=== PATIENT | male | born 1950 | race Two or more races ===

== ENCOUNTER 2019-07-21 07:29 | Inpatient (IN) | payer MEDICARE, OTHER ==
[2019-07-21] VITALS (11 sets, daily range): BP systolic 97–146; BP diastolic 65–100
[~2019-07-21] VITALS: Ht 167.6 cm; Wt 71.2 kg
--- NOTE | 2019-07-21 07:49 | Pre-Procedure Note/Attestation ---
Pre-Procedure Note/Attestation Complete Prior to Procedure Planned Procedure: not applicable Procedure Narrative: TURP SP Tube placement Indications for Procedure Pre-Operative Diagnosis: retention Attestation I attest that I discussed the nature of the procedure; its benefits; risks and complications; and alternatives (and the risks and benefits of such alternatives ), prior to the procedure, with the patient (or the patient's legal truck sales representative). I attest that, if there was a reasonable possibility of needing a blood transfusion, the patient (or the patient's legal truck sales representative) was given the [facility] standardized written summary, pursuant to the Alex Lita Blood Safety Act ([place] Health and Safety Code # 1645, as amended). I attest that I re-evaluated the patient just prior to the surgery and that there has been no change in the patient's H&P, except as documented below: Nima Gallo MD Jul 21, 2019 07:49
[2019-07-21] MEDS ORDERED: Glycopyrrolate 0.2mg/ml 1ml Vial ONE ×3 (08:29→09:51)
--- NOTE | 2019-07-21 08:35 | Pre-Procedure Note/Attestation ---
Pre-Procedure Note/Attestation Complete Prior to Procedure Planned Procedure: not applicable Procedure Narrative: TURP Cystolopaxy Indications for Procedure Pre-Operative Diagnosis: retention Attestation I attest that I discussed the nature of the procedure; its benefits; risks and complications; and alternatives (and the risks and benefits of such alternatives ), prior to the procedure, with the patient (or the patient's legal district representative). I attest that, if there was a reasonable possibility of needing a blood transfusion, the patient (or the patient's legal district representative) was given the [facility] standardized written summary, pursuant to the Alex Lita Blood Safety Act ([place] Health and Safety Code # 1645, as amended). I attest that I re-evaluated the patient just prior to the surgery and that there has been no change in the patient's H&P, except as documented below: Nima Gallo MD Jul 21, 2019 08:35
[2019-07-21] MEDS ORDERED: CHOLESTEROL MED SQ (08:38)
[2019-07-21] MEDS ORDERED: BENICAR HCT 401 EACH ORAL (08:38)
[2019-07-21] MEDS ORDERED: NS Irrig 4000ml IRRIG ONE ×2 (09:00)
[2019-07-21] MEDS ORDERED: Midazolam 2mg/2ml Inj ONE (09:00)
[2019-07-21] MEDS ORDERED: fentaNYL 100 mcg/2 mL IV ONE (09:00)
[2019-07-21] MEDS ORDERED: LR 1000ml ONE (09:00)
[2019-07-21] MEDS ORDERED: Neostigmine 1mg/ml 10ml Inj ONE (09:00)
[2019-07-21] MEDS ORDERED: Rocuronium Bromide 50mg/5ml Inj IV ONE (09:00)
[2019-07-21] MEDS ORDERED: Sterile Water Irrig 1000ml IRRIG ONE (09:00)
[2019-07-21] MEDS ORDERED: NS Irrig 1000ml ONE (09:00)
[2019-07-21] MEDS ORDERED: LR 1000ml 1,000 ML IVLG SCH (09:07)
[2019-07-21] MEDS ORDERED: Lidocaine 1% MPF 10mg/ml 5ml ONE (09:09)
[2019-07-21] MEDS ORDERED: Propofol 200mg/20ml IV ONE (09:09)
[2019-07-21] MEDS ORDERED: Dexamethasone 4mg/ml vial ONE (09:09)
--- NOTE | 2019-07-21 09:09 | Anethesia Preoperative Eval ---
Anesthesia Pre-op PMH/ROS General Date of Evaluation: Jul 21, 2019 Time of Evaluation: 09:03 Anesthesiologist: Faustino ASA Score: ASA 3 Mallampati Score Class I : Soft palate, uvula, fauces, pillars visible Class II: Soft palate, uvula, fauces visible Class III: Soft palate, base of uvula visible Class IV: Only hard plate visible Mallampati Classification: Class II Surgeon: Sabino Diagnosis: BPH Surgical Procedure: Prostatectomy Anesthesia History: none Family History: no anesthesia problems Allergies: Coded Allergies: No Known Allergies (Unverified , 07/21/19) Medications: see eMAR Patient NPO?: Yes NPO Date: Jul 20, 2019 NPO Time: 1999 Past Medical History Cardiovascular: Reports: HTN, other - HL Gastrointestinal/Genitourinary: Reports: other - BPH, Bladder Stones Anesthesia Pre-op Phys. Exam Physician Exam Last Vital Signs Date Time Temp Pulse Resp B/P (MAP) Pulse Ox O2 Delivery O2 Flow Rate FiO2 07/21/19 08:22 Room Air 07/21/19 07:56 97.0 64 18 124/76 (92) 98 Constitutional: NAD Neurologic: CN 2-12 intact Cardiovascular: RRR Respiratory: CTA Gastrointestinal: S/NT/ND Airway Exam Mallampati Score: Class II MO: full ROM: limited Teeth: missing, intact Anesthesia Pre-op A/P Risk Assessment & Plan Assessment: ASA 3 Plan: GA, SED, GlideScope Go Status Change Before Surgery: No Pre-Antibiotics Dru Gram Ancef IV Given Within 1 Hr of Incision: Yes Time Given: 09:16 Chad Harmon MD Jul 21, 2019 09:09
[2019-07-21] MEDS ORDERED: Atropine Sulfate 0.4mg/ml inj IVP PRN (09:15)
[2019-07-21] MEDS ORDERED: Acetaminophen (Non formulary) 100 ML IV ONE (09:15)
[2019-07-21] MEDS ORDERED: LORazepam Inj 2mg/ml 1ml IV PRN (09:15)
[2019-07-21] MEDS ORDERED: Ketorolac 30mg Inj IV PRN ×2 (09:15)
[2019-07-21] MEDS ORDERED: HYDROcodone/Acetamin 5/325 tab ORAL PRN ×2 (09:15→10:30)
[2019-07-21] MEDS ORDERED: Metoclopramide 10mg/2ml Inj IVP PRN (09:15)
[2019-07-21] MEDS ORDERED: Hydromorphone 0.5mg/0.5ml inj IVP PRN (09:15)
[2019-07-21] MEDS ORDERED: DiphenhydrAMINE 50mg/ml Inj IVP PRN (09:15)
[2019-07-21] MEDS ORDERED: Labetalol 5mg/ml 20ml vial IV PRN (09:15)
[2019-07-21] MEDS ORDERED: Meperidine 25mg/0.5ml Inj (FOR RIGORS ONLY) IV PRN (09:15)
[2019-07-21] MEDS ORDERED: HYDROcodone/Acetamin 7.5/325 tab ORAL PRN (09:15)
[2019-07-21] MEDS ORDERED: fentaNYL 100 mcg/2 mL IV PRN (09:15)
[2019-07-21] MEDS ORDERED: Midazolam 2mg/2ml Inj IVP PRN (09:15)
[2019-07-21] MEDS ORDERED: oxyCODONE HCL/Acetaminophen 5/325mg ORAL PRN (09:15)
--- NOTE | 2019-07-21 09:37 | Immediate Post-Op Evaluation ---
Immediate Post-Op Evalulation Immediate Post-Op Evalulation Procedure: Prostatectomy Date of Evaluation: Jul 21, 2019 Time of Evaluation: 10:27 IV Fluids: 700 LR Blood Products: 0 Estimated Blood Loss: 50 Urinary Output: 0 Blood Pressure Systolic: 146 Blood Pressure Diastolic: 100 Pulse Rate: 91 Respiratory Rate: 16 O2 Sat by Pulse Oximetry: 100 Temperature (Fahrenheit): 97.9 Pain Score (1-10): 2 Nausea: No Vomiting: No Complications 0 Patient Status: awake, reacts, patent, extubated, none Hydration Status: adequate Dru Gram Ancef IV Given Within 1 Hr of Incision: Yes Chad Harmon MD Jul 21, 2019 09:37
--- NOTE | 2019-07-21 10:26 | Brief Operative Note ---
Immediate Post Operative Note Operative Note Pre-op Diagnosis: retention Procedure: turp cystolopaxy Post-op Diagnosis: same Post-op Diagnosis: same as pre-op Surgeon: rosa gallo Anesthesia: general Specimen: yes Complications: none Condition: stable Fluids: 500 Estimated Blood Loss: minimal Implant(s) used?: No Nima Gallo MD Jul 21, 2019 10:26
[2019-07-21] MEDS ORDERED: HYDROmorphone 1mg/ml Carpuject IVP PRN (10:30)
[2019-07-21 11:00] LABS: BASOPHILS % (AUTO) 1.2 % (0.0-2.0); EOSINOPHILS % (AUTO) 0.9 % (0.0-3.0); HEMATOCRIT 41.3 % (42.0-52.0); HEMOGLOBIN 13.8 G/DL (14.2-18.0); LYMPHOCYTES % (AUTO) 23.8 % (20.0-45.0); MEAN CORPUSCULAR VOLUME 96 FL (80-99); MONOCYTES % (AUTO) 5.2 % (1.0-10.0); NEUTROPHILS % (AUTO) 68.8 % (45.0-75.0); PLATELET COUNT 299 K/UL (150-450); RED BLOOD COUNT 4.29 M/UL (4.70-6.10); RED CELL DISTRIBUTION WIDTH 13.9 % (11.6-14.8); WHITE BLOOD COUNT 9.2 K/UL (4.8-10.8)
--- NOTE | 2019-07-21 11:36 | NUR ---
NURSE NOTES: Patient arrived on unit. Stable. Denies pain or SOB. Patient oriented to room, unit, and call light. Patient instructed to use call light for assistance, verbalized understanding. F/C in place and irrigating as ordered. Patient is in bed in locked and lowest position with call light within reach. All safety measures provided. Will continue to monitor.
[2019-07-21 11:38] LABS: ANION GAP 8 mmol/L (5-15); BLOOD UREA NITROGEN 27 mg/dL (7-18); CALCIUM 8.9 MG/DL (8.5-10.1); CARBON DIOXIDE 28 MMOL/L (21-32); CHLORIDE 108 MMOL/L (98-107); CREATININE 1.3 MG/DL (0.55-1.30); POTASSIUM 4.8 MMOL/L (3.5-5.1); SODIUM 144 MMOL/L (136-145)
[2019-07-21] MEDS ORDERED: ceFAZolin sod 1 GM in NS 55 ML IVPB ONE (12:45)
--- NOTE | 2019-07-21 13:10 | NUR ---
NURSE NOTES: Paged Dr. Coronel regarding patient's admission. Dr. Coronel will see patient and decide on continuing home medication.
[2019-07-21] MEDS: D5 1/2NS w/KCl 20mEq 1,000 ML IV SCH ×2 (13:40→23:00)
[2019-07-21] MEDS: ceFAZolin sod 2 GM in D5W 110 ML IV SCH (17:20)
[2019-07-21] MEDS: Docusate 100mg cap ORAL SCH (17:20)
--- NOTE | 2019-07-21 18:13 | NUR ---
NURSE NOTES: continuous irrigation running clear as ordered.
--- NOTE | 2019-07-21 19:00 | NUR ---
NURSE NOTES: 2600cc clear output emptied. 2500cc NS in.
--- NOTE | 2019-07-21 19:38 | NUR ---
HAND-OFF: Report given to Alana PYLE. Patient is stable.
--- NOTE | 2019-07-21 19:39 | NUR ---
NURSE NOTES: Received report & pt from EDENILSON Huitron. Pt lying in bed, a&ox4, in room air. No s/s of acute distress & no c/o pain. F/C intact & draining clear yellow urine to gravity. Pt on continuous bladder irrigation. IV site intact with IVF running as ordered. Plan of care discussed.
--- NOTE | 2019-07-21 21:00 | NUR ---
NURSE NOTES: New bag of NS 3000cc hung.
[2019-07-22] VITALS: BP 92/60
--- NOTE | 2019-07-22 | NUR ---
NURSE NOTES: 1400ml of clear output emptied from serrano bag.
[2019-07-22] MEDS: ceFAZolin sod 2 GM in D5W 110 ML IV SCH (00:14)
[2019-07-22 04:00] VITALS: BP 109/65
--- NOTE | 2019-07-22 06:00 | NUR ---
NURSE NOTES: @0400 850ml clear output emptied @0600 500ml of clear output emptied from serrano bag.
[2019-07-22 06:53] LABS: ANION GAP 8 mmol/L (5-15); BLOOD UREA NITROGEN 25 mg/dL (7-18); CALCIUM 8.5 MG/DL (8.5-10.1); CARBON DIOXIDE 25 MMOL/L (21-32); CHLORIDE 104 MMOL/L (98-107); CREATININE 1.1 MG/DL (0.55-1.30); HEMATOCRIT 38.6 % (42.0-52.0); HEMOGLOBIN 13.1 G/DL (14.2-18.0); MEAN CORPUSCULAR VOLUME 95 FL (80-99); PLATELET COUNT 309 K/UL (150-450); POTASSIUM 4.4 MMOL/L (3.5-5.1); RED BLOOD COUNT 4.08 M/UL (4.70-6.10); RED CELL DISTRIBUTION WIDTH 12.7 % (11.6-14.8); SODIUM 137 MMOL/L (136-145); WHITE BLOOD COUNT 19.1 K/UL (4.8-10.8)
--- NOTE | 2019-07-22 07:30 | NUR ---
HAND-OFF: Report given to EDENILSON Faye. Rounds done.
[2019-07-22 08:00] VITALS: BP 98/66
--- NOTE | 2019-07-22 08:00 | NUR ---
NURSE NOTES: Received report from Alana RN, pt a/a/o x4 with no signs of distress or other issues at this time. 3way Stock cath in place draining clear yellow urine. per medical operations supervisor urine out put: 875ml. call light within reach, bed in lowest position, side rales up x2. I will f/u as needed.
[2019-07-22] MEDS: Docusate 100mg cap ORAL SCH ×2 (09:31→17:25)
[2019-07-22] MEDS: D5 1/2NS w/KCl 20mEq 1,000 ML IV SCH ×2 (09:31→17:25)
[2019-07-22 12:00] VITALS: BP 112/65
[2019-07-22 15:33] LABS: HEMATOCRIT 40.5 % (42.0-52.0); HEMOGLOBIN 13.7 G/DL (14.2-18.0); MEAN CORPUSCULAR VOLUME 96 FL (80-99); PLATELET COUNT 324 K/UL (150-450); RED CELL DISTRIBUTION WIDTH 14.1 % (11.6-14.8)
--- NOTE | 2019-07-22 15:45 | Consultation ---
DATE OF CONSULTATION: 07/22/2019 INTERNAL MEDICINE CONSULTATION CONSULTING PHYSICIAN: Duncan Coronel M.D. HISTORY OF PRESENT ILLNESS: This is a 69-year-old male who has undergone TURP and cystolitholapaxy by Dr. Nima Gallo. The patient is doing well postop day #1. His past history is notable for hypertension, hyperlipidemia, as well as urolithiasis. Per review of operative notes, I note that the patient underwent TURP and cystolitholapaxy, which was uncomplicated. There was a 500 mL fluid and minimal blood loss. Currently, the patient has a Stock in place with bladder irrigation in place. PAST MEDICAL HISTORY: Remarkable for hypertension, hyperlipidemia. HOME MEDICATIONS: Include unknown medicine for cholesterol as well as Benicar. ALLERGIES: None reported. PREVIOUS SURGERIES: None. REVIEW OF SYSTEMS: Denies any headaches, hematemesis, melena, or hematochezia. PHYSICAL EXAMINATION: GENERAL: Reveals a 69-year-old male. VITAL SIGNS: Today show blood pressure of 98/60, heart rate 64, respirations , he is afebrile. HEENT: Unremarkable. LUNGS: Clear breath sounds bilaterally. ABDOMEN: Soft. NEUROLOGIC: Nonfocal. LABORATORY TESTING: Preoperatively is unremarkable. Preoperative white count was 10 and hemoglobin of 14 with a creatinine of 1.4. IMPRESSION: 1. Postop day #1, status post TURP and cystolitholapaxy. 2. Hypertension. 3. Hyperlipidemia. DISCUSSION: The patient is doing well postop day #1. Continue bladder irrigation. We will follow as tour counselor. Hold all p.o. medications as he is currently borderline hypotensive. Anticipate laboratory testing tomorrow and discharge planning. Duncan Coronel M.D. DR: NEIDA JOB#: [id number] CC:
[2019-07-22 16:00] VITALS: BP 117/70
--- NOTE | 2019-07-22 17:00 | NUR ---
NURSE NOTES: RN called DR. Coronel to inform of the CBC results. RN will carry on orders as indicated.
--- NOTE | 2019-07-22 17:04 | NUR ---
CASE MANAGEMENT:REVIEW DIRECT ADMIT TO MED SURG BY DR Noris BRONSON FOR SCHEDULED SURGERY SI;TURP AND CYSTOLITHOLAPAXY W/HOLMIUM LASER 98.3 54 22 92/60 95% ON RA CL 108 BUN 27 BG 124 IS;IVF D5 @ 100 ML/HR DILAUDID IV Q3 HRS PRN ZOFRAN IV Q6 HRS PRN BENADRYL IV PRN LABETALOL IV PRN HYDRALAZINE IV PRN REGLAN IV PRN LORAZEPAM IV TORADOL IV PRN MED SURG STATUS DCP;FROM HOME
--- NOTE | 2019-07-22 19:32 | NUR ---
HAND-OFF: Report given to Alana PYLE. pt in stable condition.
--- NOTE | 2019-07-22 19:33 | NUR ---
NURSE NOTES: Received report & pt from EDENILSON Faye. Pt lying in bed, a&ox4, in room air. No s/s of acute distress & no c/o pain. F/C intact & draining clear yellow urine to gravity. IV site intact with IVF running as ordered. Plan of care discussed.
[2019-07-22 20:00] VITALS: BP 126/88
[2019-07-23] VITALS: BP 118/80
[2019-07-23 04:00] VITALS: BP 124/86
[2019-07-23 06:12] LABS: ANION GAP 11 mmol/L (5-15); BLOOD UREA NITROGEN 21 mg/dL (7-18); CALCIUM 8.8 MG/DL (8.5-10.1); CARBON DIOXIDE 23 MMOL/L (21-32); CHLORIDE 108 MMOL/L (98-107); CREATININE 1.2 MG/DL (0.55-1.30); POTASSIUM 4.3 MMOL/L (3.5-5.1); SODIUM 142 MMOL/L (136-145)
[2019-07-23 06:46] LABS: HEMATOCRIT 39.3 % (42.0-52.0); HEMOGLOBIN 13.5 G/DL (14.2-18.0); LYMPHOCYTES % (AUTO) 27.2 % (20.0-45.0); MEAN CORPUSCULAR VOLUME 94 FL (80-99); MONOCYTES % (AUTO) 8.5 % (1.0-10.0); NEUTROPHILS % (AUTO) 62.3 % (45.0-75.0); PLATELET COUNT 312 K/UL (150-450); RED BLOOD COUNT 4.17 M/UL (4.70-6.10); RED CELL DISTRIBUTION WIDTH 12.4 % (11.6-14.8); WHITE BLOOD COUNT 15.6 K/UL (4.8-10.8)
--- NOTE | 2019-07-23 07:22 | NUR ---
HAND-OFF: Written report given to AM charge nurse for EDENILSON Palafox.
[2019-07-23] MEDS ORDERED: LEVAQUIN500 MG ORAL (07:41)
[2019-07-23] MEDS ORDERED: NORCO 5-325 TA1 EACH ORAL (07:41)
--- NOTE | 2019-07-23 07:44 | Pulmonology Progress Note ---
Assessment/Plan Assessment/Plan IMPRESSION: 1. Postop day #2, status post TURP and cystolitholapaxy. 2. Hypertension. 3. Hyperlipidemia. DISCUSSION: The patient is doing well postop day #2. Leucocytosis has resolved. Will dc home on PO Levaquin Stock attach to leg bag Duncan Coronel M.D. Subjective Interval Events: None new Constitutional: Reports: no symptoms HEENT: Repors: no symptoms Respiratory: Reports: no symptoms Cardiovascular: Reports: no symptoms Allergies: Coded Allergies: No Known Allergies (Unverified , 07/21/19) Objective Last 24 Hour Vital Signs Date Time Temp Pulse Resp B/P (MAP) Pulse Ox O2 Delivery O2 Flow Rate FiO2 07/23/19 04:00 98.0 70 20 124/86 (99) 97 07/23/19 00:00 98.2 61 18 118/80 (93) 94 07/22/19 21:00 Room Air 07/22/19 20:00 98.1 66 17 126/88 (101) 93 07/22/19 16:00 98.2 71 22 117/70 (86) 99 07/22/19 12:00 98.3 61 20 112/65 (81) 99 07/22/19 09:00 Room Air 07/22/19 08:00 98.1 60 20 98/66 (77) 99 Intake and Output 07/22/19 07/23/19 19:00 07:00 Intake Total 600 ml 980 ml Output Total 1500 ml 1200 ml Balance -900 ml -220 ml Intake Oral 600 ml 480 ml IV Total 500 ml Output Urine Total 1500 ml 1200 ml General Appearance: no acute distress HEENT: normocephalic Respiratory/Chest: chest wall non-tender Cardiovascular: normal peripheral pulses Abdomen: normal bowel sounds Laboratory Tests 07/22/19 15:18: White Blood Count 21.0H, Red Blood Count 4.20L, Hemoglobin 13.7L, Hematocrit 40.5L, Mean Corpuscular Volume 96, Mean Corpuscular Hemoglobin 32.6H, Mean Corpuscular Hemoglobin Concent 33.9, Red Cell Distribution Width 14.1, Platelet Count 324, Mean Platelet Volume 9.3, Neutrophils (%) (Auto) , Lymphocytes (%) ( Auto) , Monocytes (%) (Auto) , Eosinophils (%) (Auto) , Basophils (%) (Auto) , Differential Total Cells Counted 100, Neutrophils % (Manual) 67, Lymphocytes % ( Manual) 26, Monocytes % (Manual) 7, Eosinophils % (Manual) 0, Basophils % ( Manual) 0, Band Neutrophils 0, Platelet Estimate Adequate, Platelet Morphology Normal, Red Blood Cell Morphology Normal 07/23/19 05:45: White Blood Count 15.6H, Red Blood Count 4.17L, Hemoglobin 13.5L, Hematocrit 39.3L, Mean Corpuscular Volume 94, Mean Corpuscular Hemoglobin 32.4H, Mean Corpuscular Hemoglobin Concent 34.4, Red Cell Distribution Width 12.4, Platelet Count 312, Mean Platelet Volume 7.9, Neutrophils (%) (Auto) 62.3, Lymphocytes (% ) (Auto) 27.2, Monocytes (%) (Auto) 8.5, Eosinophils (%) (Auto) 1.0, Basophils ( %) (Auto) 1.0, Sodium Level 142, Potassium Level 4.3, Chloride Level 108H, Carbon Dioxide Level 23, Anion Gap 11, Blood Urea Nitrogen 21H, Creatinine 1.2, Estimat Glomerular Filtration Rate > 60, Glucose Level 101, Calcium Level 8.8 Current Medications Medications (Trade) Dose Ordered Sig/Carlene Route PRN Reason Start Time Stop Time Status Last Admin Dose Admin Acetaminophen (Tylenol) 650 mg Q6H PRN ORAL Mild Pain (Pain Scale 1-3) 07/21/19 10:30 08/20/19 10:29 Acetaminophen/ Hydrocodone Bitart ([place] 5/325) 1 tab Q4H PRN ORAL Moderate Pain (Pain Scale 4-6) 07/21/19 10:30 07/28/19 10:29 Docusate Sodium (Colace) 100 mg TWICE A DAY ORAL 07/21/19 18:00 08/20/19 17:59 07/22/19 17:25 Hydromorphone HCl (Dilaudid) 1 mg Q3H PRN IVP pain score 4-6 07/21/19 10:30 07/28/19 10:29 Levofloxacin 100 ml @ 100 mls/hr Q24H IVPB 07/22/19 20:00 07/29/19 19:59 07/22/19 20:15 Ondansetron HCl (Zofran) 4 mg Q6H PRN IVP Nausea & Vomiting 07/21/19 10:30 08/20/19 10:29 Temazepam (RestoriL) 7.5 mg DAILYPRN PRN ORAL Insomnia 07/21/19 10:30 07/28/19 10:29 Duncan Coronel MD Jul 23, 2019 07:44
[2019-07-23 08:00] VITALS: BP 119/79
--- NOTE | 2019-07-23 08:10 | NUR ---
NURSE NOTES: Written report received, rounds made. Patient resting in high fowlers position in bed. No distress on RA, no SOB, pain, NV. LH heplock intact. FC in place, draining y/cl (no clots) to gravity. Call light in reach, bed in lowest position, will continue to monitor.
[2019-07-23 08:43] VITALS: BP 113/76
--- NOTE | 2019-07-23 08:43 | 48 Hour Post Anesthesia Eval ---
Post Anesthesia Evaluation Procedure: Prostatectomy Date of Evaluation: Jul 23, 2019 Time of Evaluation: 08:42 Blood Pressure Systolic: 113 0: 76 Pulse Rate: 82 Respiratory Rate: 20 Temperature (Fahrenheit): 97.6 O2 Sat by Pulse Oximetry: 99 Airway: patent Nausea: No Vomiting: No Pain Intensity: 3 Hydration Status: adequate Cardiopulmonary Status: stable Mental Status/LOC: patient returned to baseline Follow-up Care/Observations: n/a Post-Anesthesia Complications: none Follow-up care needed: ready to discharge Edward Penaloza MD Jul 23, 2019 08:43
[2019-07-23] MEDS: Docusate 100mg cap ORAL SCH (09:51)
--- NOTE | 2019-07-23 13:30 | NUR ---
NURSE NOTES: Dr. Coronel notified of +MRSA in nares culture, okay for discharge, see order.
[2019-07-23] MEDS ORDERED: Tubing IV Secondary IV ONE (13:34)
--- NOTE | 2019-07-23 14:22 | NUR ---
NURSE NOTES: Discharge instructions and new prescription medications/medication list reviewed with patient and spouse, verbalized understanding. Prescription medications filled and delivered from [facility] given directly to patient. LH heplock discontinued, no active bleeding. FC drainage bag switched to leg bag, instructed patient and spouse on how to apply leg bag/drainage bag, all supplies provided, verbalized understanding. Leg bag reassessed, y/cl urine noted in bag. Patient ambulated down to lobby with RN in stable condition. Discharged home at 1422.
--- NOTE | 2019-07-23 23:45 | Operative Note - Dictated ---
DATE OF OPERATION: 07/21/2019 PREOPERATIVE DIAGNOSES: Bladder stone and BPH. POSTOPERATIVE DIAGNOSES: Bladder stone and BPH. OPERATION: Cystolitholapaxy of large bladder stone with transurethral resection of the prostate. OPERATED BY: Nima Gallo M.D. ANESTHESIA: General. FINDINGS: Bladder stone and BPH. INDICATION FOR SURGERY: The patient with recurrent UTIs and found to have bladder stone and large prostate. Treatment options were explained to the patient in great length. He understood the nature of the procedure and signed consent. DESCRIPTION OF PROCEDURE: He was brought to the operating room, placed in lithotomy position, prepped and draped in standard fashion. Under general anesthesia, a cystoscope was introduced into the bladder. A stone was found. Using 1000 micron fiber, the stone was fragmented into small pieces and removed with the Follica evacuator. After that, the formal transurethral resection of the prostate was done including the lateral . A tissue was removed for pathologic examination, cultured it. Cystoscopy was normal. A 24 three-way Stock catheter was placed and left indwelling. The patient tolerated the procedure well. No evidence of complications. Nima Gallo M.D. DR: REE JOB#: [id number] CC:
--- NOTE | 2019-07-25 09:50 | Discharge Summary ---
Discharge Summary Discharge Summary _ DATE OF ADMISSION: 07/21/2019 DATE OF DISCHARGE: 07/23/2019 SURGEON: Dr. Nima Gallo REGULATORY SUBMISSIONS ASSOCIATE: Dr. Hector Coronel BRIEF HOSPITAL COURSE: Patient is a 69-year-old male, who has a history of bladder stone and BPH underwent TURO and cystolitholapaxy of large bladder stone. He tolerated procedure well. Surgery was uneventful. Post-operatively, patient was admitted for post-op care. Patient has continuous bladder irrigation. He was placed on SCDs for DVT prophylaxis and was encouraged use of incentive spirometer. Diet was advanced. The following day, leukocytosis resolved. Hemoglobin level was stable. Patient was cleared for discharge home on p.o. antibiotics. Stock catheter connected to leg bag. Patient was eventually cleared for discharge home. FINAL DIAGNOSES: Bladder stone and BPH status post TURP with cystolitholapaxy (Refer to Operative Report) DISCHARGE DISPOSITION: Patient was discharged home. DISCHARGE MEDICATIONS: Refer to Medication Reconciliation Sheet. DISCHARGE INSTRUCTIONS: Post-op instructions given. Follow-up in a week. I have been assigned to complete a DC summary on this account, I was not involved with the patient's management.--TITI Wyatt Jacqueline Robles NP Jul 25, 2019 09:50
== END 2019-07-23 13:35 | disposition home or self-care (01) | DRG 655 ==
LOC: SDSOVERFLO 07:29 → 3E 11:33 → SDSOVERFLO 07-23 06:00 → 3E 07-23 06:02
PROC: 0VT08ZZ Resection of Prostate, Via Natural or Artificial Opening Endoscopic (ICD-10-PCS; principal; 2019-07-21 08:30)
PROC: 0T7B8DZ Dilation of Bladder with Intraluminal Device, Via Natural or Artificial Opening Endoscopic (ICD-10-PCS; principal; 2019-07-21 08:30)
PROC: 0TCB8ZZ Extirpation of Matter from Bladder, Via Natural or Artificial Opening Endoscopic (ICD-10-PCS; principal; 2019-07-21 08:30)
DX: N21.0 Calculus in bladder (principal); N40.1 Benign prostatic hyperplasia with lower urinary tract symptoms; R33.8 Other retention of urine; I10 Essential (primary) hypertension; E78.5 Hyperlipidemia, unspecified
CPT/HCPCS: 36415; 80048; 85007; 85025; 86850; 86900; 86901; 87081; 94003; 94150; J2250; J2710